=== PATIENT | male | born 1970 | race Caucasian/White ===

== ENCOUNTER → 2018-05-03 08:05 | Outpatient (REF) | payer SELFPAY | LOC: OM 08:05 | PROVIDERS: PCP General Practice; Visit Provider Nurse Practitioner Family | DX: Z11.1 Encounter for screening for respiratory tuberculosis (principal) ==

== ENCOUNTER → 2018-05-05 13:35 | Outpatient (REF) | payer SELFPAY | LOC: OM 13:35 | PROVIDERS: PCP General Practice; Visit Provider Nurse Practitioner Family | DX: Z11.1 Encounter for screening for respiratory tuberculosis (principal) ==

== ENCOUNTER 2019-08-25 07:00 | Outpatient (CLI) | payer BC, SELFPAY ==
[2019-08-25 12:55] LABS: Hemoglobin A1C 5.8 % (4.5-6.2)
== END 2019-08-25 07:20 ==
PROVIDERS: PCP Nurse Practitioner; Visit Provider Nurse Practitioner
DX: Z13.1 Encounter for screening for diabetes mellitus (principal)
CPT/HCPCS: 36415; 83036

== ENCOUNTER 2021-10-21 04:17 | Outpatient (CLI) | payer BC, SELFPAY ==
[2021-10-21 10:00] LABS: Hemoglobin A1C 5.5 % (<5.7)
[2021-10-21 10:43] LABS: Calculated LDL 128 mg/dL (<100); Cholesterol 211 mg/dL (<200); HDL Cholesterol 40 mg/dL (40-60); Triglyceride 216 mg/dL (<150)
== END 2021-10-21 04:18 | disposition home or self-care (01) ==
LOC: LBO 04:17
PROVIDERS: PCP Nurse Practitioner; Visit Provider Nurse Practitioner
DX: Z13.1 Encounter for screening for diabetes mellitus (principal); Z13.6 Encounter for screening for cardiovascular disorders
CPT/HCPCS: 36415; 80061; 83036

== ENCOUNTER 2022-06-16 06:43 | Emergency (ER) | payer BC, SELFPAY ==
[2022-06-16 06:55] VITALS: BP 134/91; PULSE 102; RESP 16; TEMP 36.9; O2SAT 94
[2022-06-16 07:07] VITALS: RESP 16
--- NOTE | 2022-06-16 07:21 | ED.GENADUL_ITS ---
Discharge Plan Disposition Patient Disposition: HOME Condition: Stable Discharge Details Clinical Impression: COVID-19 Primary Care Provider: Mirna Atkins ED Provider: Arpita Jeong Home Meds and New Rx's Prescriptions: Continued clindamycin phosphate 1 % gel, once daily 1 applic topical DAILY Qty: 75 0RF lisinopril 20 mg tablet 20 mg PO DAILY Qty: 90 4RF metronidazole [MetroCream] 0.75 % cream 1 applic Topical BID Qty: 45 6RF Discharge Instructions Instructions: COVID-19 (Coronavirus Disease 2019) (ED) Additional Instructions: Your labs and imaging today are reassuring and show no evidence of acute concerning or significant findings. Take the Zofran as needed and directed for nausea and vomiting. Take the Paxlovid that as directed until finished. Follow-up with your primary care doctor in 1 week. Return to the emergency department with any worsening or new concerning s ymptoms. Discharge Data Discharge Date/Time-TO BE ENTERED AT DEPARTURE: 06/16/22 10:34 Discharge Physician: Arpita Jeong Medical Decision Making <Luis Daniel Mayfield MD - Last Filed: 06/16/22 07:57> 51-year-old male history of hypertension presents after testing positive for COVID, symptomatology over the last 1 to 2 days comprised of dry cough, body aches, fatigue, nausea and vomiting. Patient is nontoxic afebrile resting comfortably currently no respiratory distress saturating 94% on room air. Speaking full sentences. No active vomiting. Slightly tachycardic on arrival. History physical consistent with viral syndrome; low suspicion for electrolyte abnormality or superimposed pneumonia however given mild tachycardia and symptomatology will administer fluids antiemetics dexamethasone will obtain basic labs and chest x-ray. Likely home with close follow-up and home care instructions and return precautions <Arpita Jeong DO - Last Filed: 06/16/22 10:28> Dr. Mayfield 51-year-old male history of hypertension presents after testing positive for COVID, symptomatology over the last 1 to 2 days comprised of dry cough, body aches, fatigue, nausea and vomiting. Patient is nontoxic afebrile resting comfortably currently no respiratory distress saturating 94% on room air. Speaking full sentences. No active vomiting. Slightly tachycardic on arrival. History physical consistent with viral syndrome; low suspicion for electrolyte abnormality or superimposed pneumonia however given mild tachycardia and symptomatology will administer fluids antiemetics dexamethasone will obtain bas ic labs and chest x-ray. Likely home with close follow-up and home care instructions and return precautions. Dr. Jeong [phone] --please see Dr. Mayfield's note from initial presentation, exam and plan. Case endorsed to follow-up on labs and imaging and final disposition. Labs and imaging reviewed. Normal white blood cell count. Normal electrolytes. Chest x-ray negative. 1000 --patient reassessed and he feels better would like to go home. He says his nausea is resolved but still feeling fatigued and would like to go home to sleep. He is breathing comfortably with no signs of respiratory distress. No meningeal signs. Patient would like to take Paxlovid. Considering his history of prediabetes and elevated BMI, I think this is appropriate at this time. Tom xlovid dispensed. Advised to follow up with the primary care doctor for re- evaluation. Usual and customary return precautions given prior to discharge. Medical Records Medical records reviewed: Yes I reviewed the patient's medical records. Imaging Data Radiologic Study: Radiologist's impression: XR PORTABLE CHEST AP CLINICAL HISTORY: ? covid positive cough sob. ? TECHNIQUE:? 2D digital imaging was performed. COMPARISON:? No exams were available for comparison FINDINGS: Single AP portable view. Heart size is upper normal.? The mediastinum is not widened. Lungs are clear.? No infiltrates nor obvious pleural effusions. IMPRESSION: No acute pulmonary findings on this single AP portable view of the chest. HPI <Luis Daniel Mayfield MD - Last Filed: 06/16/22 07:57> General Date/Time Provider Initiated Documentation: 06/16/22 06:53 . HPI Narrative: 51-year-old male history of hypertension recently tested positive for COVID, presents with dry cough nausea vomiting and fatigue. Related Data Home Medications Medication Instructions Recorded Confirmed clindamycin phosphate 1 % topical 1 applic topical DAILY #75 mL 11/03/21 06/16/22 gel, once daily lisinopril 20 mg tablet 20 mg PO DAILY #90 tabs 11/03/21 06/16/22 metronidazole 0.75 % topical cream 1 applic topical BID #45 grams 11/03/21 06/16/22 (MetroCream) Previous Rx's Medication Instructions Recorded clindamycin phosphate 1 % topical 1 applic topical DAILY #75 mL 11/03/21 gel, once daily lisinopril 20 mg tablet 20 mg PO DAILY #90 tabs 11/03/21 metronidazole 0.75 % topical cream 1 applic topical BID #45 grams 11/03/21 (MetroCream) Allergies Allergy/AdvReac Type Severity Reaction Status Date / Time Penicillins AdvReac Mild Unverified 10/24/21 08:26 General Stated Complaint: GenMedical MERLIN: 3 Review of Systems <Luis Daniel Mayfield MD - Last Filed: 06/16/22 07:57> Narrative: Review of Systems Constitutional: Fatigue Eyes: negative ENT: negative Cardiovascular: negative Respiratory: Cough Gastrointestinal: Nausea vomiting : negative Musculoskeletal: negative Skin: negative Neurologic: negative Psych: negative PFSH <Luis Daniel Mayfield MD - Last Filed: 06/16/22 07:57> All Active Problems (Updated 06/16/22 @ 10:26 by Arpita Jeong DO) COVID-19 (Acute) Decreased hearing (Acute) Family history of colon cancer (Acute) Medical History (Updated 06/16/22 @ 10:26 by Arpita Jeong DO) Hypertension Obesity (BMI 30.0-34.9) Prediabetes Rosacea Surgical History (Updated 08/22/19 @ 14:46 by Claribel Haddad LPN) H/O vasectomy History of tonsillectomy and adenoidectomy Family History (Updated 10/03/21 @ 18:43 by Donita Polanco) Mother Heart disease Father Colon cancer Heart disease Sister Heart disease Hyperlipidemia Brother Hyperlipidemia Daughter No problems noted. Daughter No problems noted. Daughter No problems noted. Social History (Updated 10/03/21 @ 18:42 by Donita Polanco) Smoking/Tobacco Use Status: Never Second Hand Exposure: No Smoking risk assessment performed?: Yes Alcohol Intake: current Alcohol Intake frequency: holidays/special occasions only Alcohol type: wine Drug use: Never Household members: spouse and children Housing: house Communication Needs: None Do you need help understanding health information?: Never Pets and animals: Yes Pets and animals: other Details: Rabbit Sexually active: Yes Do you think of yourself as: straight/heterosexual Current gender identity: male What is your relationship status?: How often do you talk on the phone with friends or family?: twice per week How often do you get together with friends or relatives?: once per week How often do you attend roman catholic or restorationist services?: decline to answer Do you belong to any clubs or organized social groups?: no Panel score (0-1 are the most socially isolated patients): 2 Duration: < 15 minutes/day Frequency: 1-2 times per week Special lit needs: No Seatbelt use: always Helmet use: Yes Helmet use: always Drive intox or ride w/intox racing car driver: No Do you feel safe at home: Yes Do you feel safe in your relationship?: Yes Exam <Luis Daniel Mayfield MD - Last Filed: 06/16/22 07:57> Narrative Exam Narrative: Physical Examination General: alert, awake, cooperative, resting comfortably, no acute distress HEENT: normocephalic, atraumatic; PERRL, EOM intact, conjunctiva normal; no nasal discharge; moist mucous membranes, oral and pharyngeal mucosa normal, tolerating secretions Neck: supple, trachea midline; full ROM Chest: normal to inspection Respiratory: normal respiratory effort, speaking in full sentences, clear to auscultation, no wheezing, rales or rhonchi Cardiac: Tachycardia, regular rhythm, S1S2 intact, no murmurs rubs or gallops GI: abdomen soft, non-tender, non-distended; no palpable mass or hepatosplenomegaly Skin: no lesions, rashes or trauma appreciated Neuro: AAOx3, normal speech, moving all extremities Psych: Appropriate mood and affect Course <Luis Daniel Mayfield MD - Last Filed: 06/16/22 07:57> Vital Signs Vital signs: Vital Signs Temperature 36.9 C 06/16/22 06:55 Pulse 102 H 06/16/22 06:55 Respiratory Rate 16 06/16/22 06:55 Blood Pressure 134/91 H 06/16/22 06:55 Pulse Oximetry 94 06/16/22 06:55 Temperature 36.9 C 06/16/22 06:55 Temperature Source Temporal Artery Scan 06/16/22 06:55 Pulse 102 H 06/16/22 06:55 Respiratory Rate 16 06/16/22 07:07 Respiratory Effort Non-Labored 06/16/22 07:07 Respiratory Depth Normal 06/16/22 07:07 Respiratory Pattern Normal 06/16/22 07:07 Blood Pressure 134/91 H 06/16/22 06:55 Blood Pressure Position Sitting 06/16/22 06:55 Pulse Oximetry 94 06/16/22 06:55 Oxygen Delivery Method Room Air 06/16/22 06:55 Oxygen Flow Rate 0 06/16/22 06:55 Sign Out <Luis Daniel Mayfield MD - Last Filed: 06/16/22 07:57> Sign Out Data: Sign Out Comment: covid positive, nausea vomiting, sob; fluids zofran and dexamethasone given; pending labs, xray and reassessment for likely dc home Last updated by Luis Daniel Mayfield MD at 06/16/22 07:37 PAWSS <Luis Daniel Mayfield MD - Last Filed: 06/16/22 07:57> Have you Been Recently Intoxicated or Drunk Within the Last 30 days?: No Have you Ever Experienced Previous Episodes of Alcohol Withdrawal?: No Have you ever Experienced Withdrawal Seizures?: No Have you ever Experienced Delirium Tremens(DT)s?: No Have you ever undergone Alcohol Rehabilitation Treatment (i.e, inpt ot outpatient treatment programs)?: No Have you ever Experienced Blackouts?: No Have you ever Combined Alcohol with other Downers within the last 90 days?: No Have you ever Combined Alcohol with any other Substance of Abuse during the last 90 days?: No Positive Blood Alcohol level on Presentation? [PCS.BAL]: No Evidence of Increased Autonomic Activity (i.e. HR>120, tremor, sweating, agitation, nausea)?: No Result: 0 <Arpita Jeong DO - Last Filed: 06/16/22 10:28> Result: 0 <Catarino Everett MD - Last Filed: 07/01/22 10:17> Result: 0
[2022-06-16] MEDS: Normal Saline 1,000 ML 1000 ML IV (07:34)
[2022-06-16] MEDS: Ondansetron 4 MG/2 ML VIAL IVP (07:35)
[2022-06-16] MEDS: Dexamethasone 10 MG/ML VIAL IVP (07:35)
[2022-06-16 07:40] LABS: Abs Immature Grans 0.03 10^3/uL (0.0-0.06); Absolute Basophil Count 0.03 10^3/uL (0.0-0.2); Absolute Eosinophil Count 0.03 10^3/uL (0.0-0.7); Absolute Lymphocyte Count 0.78 10^3/uL (1.2-3.4); Absolute Monocyte Count 0.94 10^3/uL (0.1-0.8); Absolute Neutrophil Count 7.91 10^3/uL (1.2-6.7); Basophils % 0.3; Eosinophils % 0.3; HCT 48.6 % (40.0-50.0); HGB 16.9 g/dL (13.5-17.5); Immature Grans % 0.3; MCH 31.2 pg (27.0-33.0); MCHC 34.8 % (32.0-36.0); MCV 90 fL (80-95); MPV 9.9 fL (8.0-11.0); Monocytes % 9.7; Neutrophils % 81.4; Platelet Count 219 10^3/uL (130-400); RBC 5.41 10^6/uL (4.36-5.78); RDW 11.6 % (11.8-14.1); RDW-SD 37.7 fL; WBC 9.72 10^3/uL (4.4-10.8)
[2022-06-16 07:55] LABS: ALT 73 U/L (16-63); AST 34 U/L (15-37); Albumin 3.9 g/dL (3.4-5.0); Alkaline Phosphatase 77 U/L (46-116); Anion Gap 10.8 mmol/L (3-11); BUN 17 mg/dL (7-18); Bilirubin, Total 0.5 mg/dL (0.2-1.0); CO2 25.2 mmol/L (21.0-32.0); CREATININE 1.2 mg/dL (0.70-1.30); Calcium 8.9 mg/dL (8.5-10.1); Chloride 101 mmol/L (98-107); Estimated GFR 73.22 (mL/min/1.73m2); Glucose 108 mg/dL (74-106); Potassium 4.1 mmol/L (3.5-5.1); Sodium 137 mmol/L (136-145); Total Protein 7.6 g/dL (6.4-8.2)
--- NOTE | 2022-06-16 08:21 | DI.RAD_ITS ---
Exam(s) XR PORTABLE CHEST AP EXAM: XR PORTABLE CHEST AP CLINICAL HISTORY: covid positive cough sob. TECHNIQUE: 2D digital imaging was performed. COMPARISON: No exams were available for comparison FINDINGS: Single AP portable view. Heart size is upper normal. The mediastinum is not widened. Lungs are clear. No infiltrates nor obvious pleural effusions. IMPRESSION: No acute pulmonary findings on this single AP portable view of the chest. DATA REPOSITORY: RADIATION DOSE DELIVERED: All CT scans at this facility use at least one of these dose optimization techniques: automated exposure control; mA and/or kV adjustment per patient size (includes targeted e xams where dose is matched to clinical indication); or iterative reconstruction.
[2022-06-16 10:25] VITALS: BP 137/87; PULSE 95; RESP 16; TEMP 36.8; O2SAT 94
[2022-06-16] MEDS: Ondansetron O.D.T. 4 MG TABEF, 3 TABS/BTL PO (10:34)
[2022-06-16 10:36] VITALS: BP 137/87; PULSE 95; RESP 16; TEMP 36.8; O2SAT 94
== END 2022-06-16 10:34 | disposition home or self-care (01) ==
PROVIDERS: Emergency Medicine; Emergency Provider Physician Assistant; PCP Nurse Practitioner
DX: U07.1 COVID-19 (principal); I10 Essential (primary) hypertension
CPT/HCPCS: 80053; 96361; 96374; 96375; 99284; 71045; 85025; J1100; J2405

== ENCOUNTER 2022-08-03 09:27 | Day surgery (SDC) | payer BC, SELFPAY ==
--- NOTE | 2022-08-03 07:09 | W.COLOREPORT ---
Date of service: 08/03/22 Time of Service: 10:35 Colonoscopy Report Date of procedure: 08/03/22 Pre-op diagnosis general: colon cancer screening and family history Post-op diagnosis procedure note: other (polyps and diverticulosis) Procedure: colonoscopy with polypectomy Surgeon: Leanne Flores Anesthesia Type: General:No Airway Estimated blood loss (mL): 2 Pathology: other (ascending polyps x2, transverse polyp) Complications: None Disposition: same day Indications: The patient? is a pleasant? 51-year-old male who is here to discuss another screening colonoscopy. ? His last colonoscopy was in 2016 and it was normal.? He denies any changes in bowel habits, melena, hematochezia, unintentional weight loss. He does have a? family history of colon cancer in his father.? The procedure and risks were discussed.? The prep was reviewed in detail.? Risks, benefits and complications have been reviewed. Complications include but are not limited to bleeding, pain, perforation, missed small lesion/polyp, sore throat, aspiration and adverse reaction to the medications. Questions were entertained and answered to their satisfaction and they wished to proceed. No guarantees were given or implied. Prep: Miralax/Dulcolax Procedure Start Time: 10:35 Procedure End Time: 10:55 Retraction Time: 13 minutes Findings: 3 small polyps mild sigmoid diverticulosis Procedure Description: After informed consent was obtained the patient was taken to the procedure room and placed in a left decubitous position. Monitors were applied and a time out was done. The patients name, date of , procedure, allergies to medications and metal in their body was reviewed. The patient was then sedated. Once sedated and comfortable a rectal exam was done. External exam was normal. Internal exam revealed a normal sphincter tone and no palpable masses. The prostate normal. The scope was then introduced and retro-flexed. No internal hemorrhoids, polyps or masses were identified on retro-flexion. The scope was then advanced to the cecum without difficulty. The ileocecal vlave and appendiceal orifice were identified. The prep was good. The scope was then slowly retracted over 13 minutes back into the rectum. Polyps were removed with cold forceps in the ascending colon x2 and transverse colon x1. There was mild sigmoid diverticulosis noted. The scope was removed and the patient was woken up and taken back to Same day surgery in stable condition. The patient tolerated the procedure well and there were no immediate complications. Follow up: The patient should follow up in 5 years unless they develop changes in bowel habits or other new gastrointestinal complaints.
--- NOTE | 2022-08-03 07:10 | W.PM.DSUDISC ---
Date of service: 08/03/22 Time of Service: 10:35 Discharge Plan Disposition Patient Disposition: HOME Condition: Good Discharge Details Reason For Visit: colonoscopy Attending Provider: Leanne Flores Primary Care Provider: Mirna Atkins Home Meds and New Rx's Prescriptions: Continued clindamycin phosphate 1 % gel, once daily 1 applic topical DAILY Qty: 75 0RF lisinopril 20 mg tablet 20 mg PO DAILY Qty: 90 4RF metronidazole [MetroCream] 0.75 % cream 1 applic Topical BID Qty: 45 6RF Discontinued bisacodyl [Dulcolax (bisacodyl)] 5 mg tablet,delayed release (DR/EC) 5 mg PO ONCE Qty: 4 0RF Rx Instructions: Take according to provider's instructions for colonoscopy prep. polyethylene glycol 3350 17 gram/dose powder 17 g PO ONCE Qty: 238 0RF Rx Instructions: To be taken as directed by prescriber's office for colonoscopy prep. Discharge Instructions Instructions: Colorectal Polyps (DC), Diverticulosis (DC) Additional Instructions: Findings: 3 small polyps mild diverticulosis Follow up: 5 years Please call if you develop: fevers >101.5 Nausea or Vomiting Abdominal pain that is not transient Rectal bleeding that is more then a tbsp A hard abdomen and inability to pass gas DAY SURGERY UNIT POST ENDOSCOPY INSTRUCTIONS Instructions for everyone who is given Anesthesia: For your safety, please do the following for the next 24 Hours: a. Do not drive or operate dangerous equipment b. Do not drink alcohol beverages or use any recreational drugs for the first 24 hours or while taking pain medications. The medications in your body may have a reaction that can be dangerous. c. Do not make any important decisions or sign any important papers 1. Generally there are no restrictions on your activity after a day or so has gone by, but you may feel a bit fatigued for a few days. 2. After you arrive home you may have a light meal and return to a normal diet as you can tolerate it without feeling sick to your stomach. 3. After surgery, you may feel pain or discomfort. This should be only transient, but if it persists please contact your doctor. 4. If there are any questions regarding the findings of your procedure, please feel free to contact your doctor. 6. If you are unable to contact your doctor with a problem, contact the hospital at [phone]. 6. Continue all your regular medications unless directed otherwise. I understand the above instructions and have no questions. Signature of Patient or Responsible Adult Escort Date/Time Name of Responsible Adult Escort Signature of Nurse Date/Time Activity:: Activity as Tolerated Diet:: high fiber Discharge Orders Discharge Orders: Discharge Order (Routine); Ordered 08/03/22 Ordered By: Leanne Flores
[2022-08-03 09:30] VITALS: BP 117/90; PULSE 76; RESP 16; TEMP 36.2; O2SAT 97
[2022-08-03] MEDS: Lactated Ringers 1,000 ML 80 ML IV (10:01)
--- NOTE | 2022-08-03 10:09 | W.ANESPRE ---
General Info Date of Service Date Performed: 08/03/22 Height: 6 ft 2 in Weight: 113.4 kg Body Mass Index (BMI): 32.1 Surgical Procedure: Operation Date: 08/03/22 10:35 Proposed Procedure Side Surgeon p Colonoscopy Leanne Flores MD Meds Allergies and Home Medications Allergies Allergy/AdvReac Type Severity Reaction Status Date / Time Penicillins AdvReac Mild unknown Unverified 08/03/22 09:43 reaction Home Medication Medication Instructions Recorded clindamycin phosphate 1 % topical 1 applic topical DAILY #75 mL 11/03/21 gel, once daily lisinopril 20 mg tablet 20 mg PO DAILY #90 tabs 11/03/21 metronidazole 0.75 % topical cream 1 applic topical BID #45 grams 11/03/21 (MetroCream) bisacodyl 5 mg tablet,delayed 5 mg PO ONCE #4 tabs 07/21/22 release (Dulcolax (bisacodyl)) polyethylene glycol 3350 17 17 g PO ONCE #238 grams 07/21/22 gram/dose oral powder Current Visit Medications: Current Medications Generic Name Dose Route Start Last Admin Trade Name Tonq PRN Reason Stop Dose Admin Ringer's Solution 1,000 mls @ 80 mls/hr 08/03/22 06:00 08/03/22 10:01 IV 08/30/22 23:59 80 mls/hr INFUSION LEXIE Administration IV Miscellaneous Supplies 1 each 08/03/22 06:00 Iv Access IV 08/30/22 23:59 DIRECTED LEXIE Sodium Chloride 0 ml 08/03/22 06:00 Normal Saline Flush 10 Ml Syr IV 08/30/22 23:59 PRN PRN Sodium Chloride 0 ml 08/03/22 06:00 Normal Saline 10 Ml Vial IJ 08/30/22 23:59 DIRECTED PRN Sterile Water 0 ml 08/03/22 06:00 Water,Injection,Sterile 10 Ml Vial IJ 08/30/22 23:59 DIRECTED PRN PFSH Active Problems Active Problems: Problem Status Onset Code Family history of colon cancer Z80.0 Decreased hearing H91.90 COVID-19 U07.1 Medical History Medical History Hypertension Obesity (BMI 30.0-34.9) Prediabetes Rosacea Surgical History Surgical History (Updated 08/03/22 @ 09:42 by Sarahi Arboleda) H/O vasectomy History of colonoscopy History of tonsillectomy and adenoidectomy Tobacco Smoking/Tobacco Use Status: Never Passive smoking exposure: No Second hand exposure: No Alcohol Alcohol Intake: current Alcohol intake frequency: holidays/special occasions only Alcohol type: wine Substance Use Substance use: Never Substance use type: marijuana Vital Signs and Lab Results Vital Signs Most Recent Vital Signs in EMR: Most Recent Vital Signs Temp Pulse Resp BP Pulse Ox 36.2 C L 76 16 117/90 97 08/03/22 09:30 08/03/22 09:30 08/03/22 09:30 08/03/22 09:30 08/03/22 09:30 Lab Results Blood Type / Crossmatch: No Data to Display Complete Blood Count: No Data to Display Complete Metabolic Panel: No Data to Display Liver Function Panel: No Data to Display Coagulation Panel: No Data to Display Cardiac Panel: No Data to Display Arterial Blood Gas: No Data to Display Venous Blood Gas: No Data to Display Pancreas Panel: No Data to Display Thyroid Panel: No Data to Display Infectious Disease: No Data to Display Blood Cultures: No Data to Display Toxicology Panel: No Data to Display Anesthesia Assessment and Plan Anesthesia History Personal History: No History of Anesthesia Complications Family History: No Family History of Anesthesia Complications Exercise Tolerance Exercise Tolerance: Metabolic Equivalents>4 Pertinent Negatives Pertinent Negatives: No Symptoms of GERD, No Major Cardiovascular Symptoms or Complaints, No Major Pulmonary Symptoms or Complaints and No History of CVA/TIA Cardiac & Pulmonary Exam Cardiac Exam: Normal S1/S2 Heart Sounds Pulmonary Exam: Clear Bilateral Breath Sounds Implantable Cardiac Device Does patient have a Pacemaker or an ICD?: No Airway Exam Known Difficult Airway: No Mallampati Class: 2 Mouth Opening: Normal (> 3cm) Thyromental Distance: Greater than 3 cm Neck Range of Motion: Full ROM Neck Circumference: Normal Teeth Condition: Normal Dentition ASA Classification ASA Score: ASA 2 Emergency Case?: No NPO Status NPO Status: NPO Clears >2 hours, Solids >8 hours Anesthesia Plan Resuscitation Status: Full Code Anesthesia Technique: General Anesthesia Airway Planned: Natural Airway Monitors Used: Standard Monitors
[2022-08-03 10:16] VITALS: BMI 32.1
--- NOTE | 2022-08-03 10:44 | BOWEL_PTH ---
PATIENT: Samuel Hodge LOC: [facility] U#:[id number] AGE/SX: 51/M ROOM: RE08/03/[address]: Leanne Flores MD : 1970 BED: DIS: 08/03/2022 SPEC #: [id number] RECD: 08/03/22 12:23 STATUS: MIESHA REQ #: [id number] NIK: 08/03/22 10:[address]: Leanne Flores DEPT: Surgical Specimen RECD BY: Rose Marie Heaton ENTERED: 08/03/22 12:26 SP TYPE: Bowel OTHR DR: Mirna Atkins, PhD DIVER HELPER Tissues: 1 - BIOPSY BOWEL 2 - BIOPSY BOWEL Procedures: GROSS AND MICRO LEVEL 4 Comments: [id number]
[2022-08-03 10:59] VITALS: BP 117/85; PULSE 84; RESP 16; TEMP 36.5; O2SAT 95
--- NOTE | 2022-08-03 11:07 | W.ANESPOSTOP ---
Postoperative Evaluation Date, Time and Location Date Performed: 08/03/22 Time Performed: 11:08 Patient Location: Day Surgery Unit Vital Signs Most Recent Imported Vital Signs: Most Recent Vital Signs Temp Pulse Resp BP Pulse Ox 36.5 C 84 16 117/85 95 08/03/22 10:59 08/03/22 10:59 08/03/22 10:59 08/03/22 10:59 08/03/22 10:59 Assessment Mental Status: Awake (Alert & Oriented to Patient Baseline) Airway and Respiratory Function: Patent airway with normal (patient baseline) respiratory exam Cardiovascular Function: Hemodynamically Stable Hydration Status: Adequately Hydrated Nausea & Vomiting: No Nausea or Vomiting Pain: Pt. Denies Any Pain Peripheral Nerve Block: Patient did not receive a nerve block
[2022-08-03 11:20] VITALS: BP 129/94; PULSE 75; RESP 18; TEMP 36.5; O2SAT 95
== END 2022-08-03 11:39 | disposition home or self-care (01) ==
PROVIDERS: PCP Nurse Practitioner; Visit Provider Surgery
PROC: 0DJD8ZZ Inspection of Lower Intestinal Tract, Via Natural or Artificial Opening Endoscopic (ICD-10-PCS; CPT 45378; principal; 2022-08-03 10:30)
DX: Z12.11 Encounter for screening for malignant neoplasm of colon (principal); K63.5 Polyp of colon; K57.30 Diverticulosis of large intestine without perforation or abscess without bleeding; R73.03 Prediabetes; I10 Essential (primary) hypertension; K63.89 Other specified diseases of intestine
CPT/HCPCS: 45380; 88305